=== PATIENT | female | born 1950 | race Caucasian/White ===

== ENCOUNTER 2017-07-19 20:56 | Emergency (ER) | payer MEDICARE, BC ==
[2017-07-19 21:01] VITALS: BP 173/88
[2017-07-19] MEDS ORDERED: Amoxicillin/Clavulanate TAB* 875 MG PO ONE (21:24)
--- NOTE | 2017-07-27 16:28 | UC ---
eRnee Heath Alfonso, scribed for Preet Bhatti MD on 07/19/17 at 2109 . Throat Pain/Nasal Loi HPI - HPI Summary HPI Summary: This patient is a 67 year old F presenting to [facility] with a chief complaint of an intermittent sore throat since 3 weeks ago. The patient rates the pain 3/10 in severity. Symptoms aggravated by swallowing. Patient reports fever, productive cough (green phlegm), voice change (soft and creaky), rhinorrhea, sinus pressure, and post nasal drip. Patient denies chills, drooling, and throat tightness. She reports a sick contact with similar symptoms. PMHx of D. Patients medications reviewed this visit. Patients allergies reviewed this visit. - History of Current Complaint Chief Complaint: UCRespiratory Stated Complaint: sore throat Time Seen by Provider: 07/19/17 21:03 Hx Obtained From: Patient Onset/Duration: Sudden Onset, Lasting Weeks - 3, Still Present Severity: Moderate Pain Intensity: 3 Pain Scale Used: 0-10 Numeric Cough: Productive Associated Signs & Symptoms: Positive: Other - Patient reports fever, productive cough (green phlegm), voice change (soft and creaky), rhinorrhea, sinus pressure, and post nasal drip. Patient denies chills, drooling, and throat tightness. - Allergies/Home Medications Allergies/Adverse Reactions: Allergies Allergy/AdvReac Type Severity Reaction Status Date / Time Erythromycin Allergy Nausea And Verified 07/19/17 21:01 Vomiting Latex Allergy Rash And Verified 07/19/17 21:01 Itching Home Medications: Home Medications Multiple Vitamins W/ Minerals [Emergen-C Vitamin C] 1 zoe PO PRN 07/19/17 [ History] PMH/Surg Hx/FS Hx/Imm Hx Endocrine History: Dyslipidemia - Surgical History Surgical History: Yes Surgery Procedure, Year, and Place: 1980 & 1982 [facility] - Family History Known Family History: Positive: Cardiac Disease - Sister - Social History Alcohol Use: Occasionally Alcohol Amount: MAYBE 3 DRINKS/WEEK Substance Use Type: None Smoking Status (MU): Former Smoker Type: Cigarettes Amount Used/How Often: 1/2PPD 20 YRS Length of Time of Smoking/Using Tobacco: 20 YRS Have You Smoked in the Last Year: No When Did the Patient Quit Smoking/Using Tobacco: 1994 Review of Systems Constitutional: Fever, Other - negative chills ENT: Sore Throat, Other - voice change (soft and creaky), rhinorrhea, sinus pressure, and post nasal drip; negative drooling, and throat tightness. Respiratory: Cough - productive All Other Systems Reviewed And Are Negative: Yes Physical Exam Triage Information Reviewed: Yes Appearance: Well-Appearing, No Pain Distress Vital Signs: Initial Vital Signs Temp 98.4 F 07/19/17 20:58 Pulse 78 07/19/17 20:58 Resp 16 07/19/17 20:58 BP 173/88 07/19/17 20:58 Pulse Ox 97 07/19/17 20:58 Vital Signs Reviewed: Yes Eyes: Positive: Conjunctiva Clear ENT: Positive: Pharyngeal erythema. Negative: Nasal drainage, Tonsillar swelling, Tonsillar exudate, Trismus, Muffled/hoarse voice Neck: Positive: Supple, Nontender, No Lymphadenopathy Respiratory: Positive: Lungs clear, Normal breath sounds Cardiovascular: Positive: RRR, No Murmur Abdomen Description: Positive: Nontender Musculoskeletal: Positive: ROM Intact Neurological: Positive: Alert Psychological: Positive: Normal Response To Family Skin Exam: Normal Throat Pain/Nasal Course/Dx - Course Course Of Treatment: 67 yr old female with negative strep, but has sinus symtpoms. She has tolerated pencillins and amoxicillin class well in the past. WIll cover her for sinusitis given three weeks of symptoms, and persistent sinus pressure, and post nasal drip. - Differential Dx/Diagnosis Provider Diagnoses: sinusitis Discharge - Discharge Plan Condition: Good Disposition: HOME Prescriptions: Amoxicillin/Clavulanate TAB* [Augmentin TAB 875*] 875 mg PO BID #20 tab Patient Education Materials: Sinusitis (ED) Referrals: Nicholas Baker MD [Primary Care Provider] - 1 Week Additional Instructions: FOLLOW UP WITH YOUR PRIMARY CARE PROVIDER WITHIN ONE WEEK FOR HIGH BLOOD PRESSURE NOTED TODAY AT 173/88. The documentation as recorded by the Renee ibarra Alfonso accurately reflects the service I personally performed and the decisions made by , Preet Bhatti MD.
== END 2017-07-19 21:26 | disposition home or self-care (01) ==
LOC: UCEAST 20:56
DX: J32.9 Chronic sinusitis, unspecified (principal); R50.9 Fever, unspecified; E78.5 Hyperlipidemia, unspecified; Z88.1 Allergy status to other antibiotic agents; Z91.040 Latex allergy status; Z87.891 Personal history of nicotine dependence
CPT/HCPCS: 87651; 99212; A9270-GY; G0463